=== PATIENT | male | born 1960 | race Caucasian/White ===

== ENCOUNTER 2025-01-12 17:51 | Inpatient (IN) | payer MEDICARE ==
[~2025-01-12] VITALS: Ht 182.9 cm; Wt 79.2 kg
[2025-01-12 18:27] LABS: BASOPHILS ABSOLUTE AUTO 0.02 K/mm3 (0.00-0.23); BASOPHILS PERCENT AUTO 0 % (0-2); EOSINOPHILS ABSOLUTE AUTO 0.04 K/mm3 (0.00-0.68); EOSINOPHILS PERCENT AUTO 0 % (0-6); Hematocrit 28.1 % (37.0-53.0); Hemoglobin 8.7 g/dL (13.5-17.5); IMMATURE GRAN ABSOLUTE AUTO 0.05 K/mm3 (0.00-0.10); IMMATURE GRAN PERCENT AUTO 0 % (0-1); LYMPHOCYTES ABSOLUTE AUTO 0.76 K/mm3 (0.84-5.20); LYMPHOCYTES PERCENT AUTO 6 % (21-46); MONOCYTES ABSOLUTE AUTO 0.72 K/mm3 (0.16-1.47); MONOCYTES PERCENT AUTO 6 % (4-13); Mean Corpuscular HGB 29.3 pg (26.0-34.0); Mean Corpuscular Volume 95 fL (80-100); Mean Platelet Volume 9.4 fL (9.1-12.4); NEUTROPHILS ABSOLUTE AUTO 10.87 K/mm3 (1.96-9.15); NEUTROPHILS PERCENT AUTO 87 % (41-73); Platelet Count 130 K/mm3 (150-400); RDW Coefficient Variation 14.6 % (11.7-14.2); RDW Standard Deviation 48.9 fL (35.1-46.3); Red Blood Cell Count 2.97 M/mm3 (4.30-5.90); White Blood Cell Count 12.46 K/mm3 (4.00-11.30)
[2025-01-12 19:11] LABS: Albumin, Blood 2.9 g/dL (3.4-5.0); Albumin/Globulin Ratio 0.7 (0.8-1.8); Bilirubin, Total 0.6 mg/dL (0.1-1.0); Bun/Creatinine Ratio 8.9 (12.0-20.0); Calcium, Blood 9.7 mg/dL (8.5-10.1); Creatinine, Blood 6.52 mg/dL (0.60-1.20); Globulin, Blood 4.2 g/dL (2.2-4.0); Potassium, Blood 4.7 mmol/L (3.5-5.5); Total Protein, Blood 7.1 g/dL (6.4-8.2)
[2025-01-12] MEDS ORDERED: Acetaminophen 500 MG Tab PO ONE (19:35)
[2025-01-12 19:41] LABS: Influenza A, PCR NEGATIVE (NEGATIVE); Influenza B, PCR NEGATIVE (NEGATIVE); Resp Syncytial Virus, PCR NEGATIVE (NEGATIVE); SARS-Cov-2 (COVID-19) PCR, MMC NEGATIVE (NEGATIVE)
[2025-01-12] MEDS ORDERED: CefTRIAXone Sodium 1,000 MG in NS 100 ML IV ONE (19:50)
[2025-01-12 20:15] LABS: Base Excess Venous 14.9 mmol/L; Bicarbonate Venous 37.1 mmol/L (24.0-30.0); PCO2 Venous 52.2 mmHg (38-42); pH Blood Venous 7.48 (7.34-7.37)
[2025-01-12 23:15] LABS: Body Fluid WBC Count 152 /mm3 (0-999); RBC Count, Body Fluid 156 /mm3 (0-0)
[2025-01-13] VITALS (19 sets, daily range): BP systolic 131–183; BP diastolic 58–93
[2025-01-13 00:21] LABS: Appearance, Body Fluid Clear (Clear); Color, Body Fluid Yellow (None-Yellow); Total Cell Count, Body Fluid 100
[2025-01-13] MEDS ORDERED: OMEP20ER PO ×2 (01:38)
[2025-01-13] MEDS ORDERED: DOC250 PO ×2 (01:39)
[2025-01-13] MEDS ORDERED: MIRALAX17 GM PO ×2 (01:41)
[2025-01-13] MEDS ORDERED: SEVEC800 ×2 (01:43)
[2025-01-13] MEDS ORDERED: SEVEC800 PO ×2 (01:45)
[2025-01-13] MEDS ORDERED: Calcium Acetat667 MG PO ×2 (01:49)
[2025-01-13] MEDS ORDERED: ROPI1 PO ×2 (01:51)
[2025-01-13] MEDS ORDERED: RENAL VITAMIN0.8 MG PO ×2 (01:53)
[2025-01-13] MEDS ORDERED: Nitrostat0.3 MG SL ×2 (01:56)
[2025-01-13] MEDS ORDERED: GABA100 PO ×2 (01:58)
[2025-01-13] MEDS ORDERED: ONDA4ODT PO ×2 (02:00)
[2025-01-13] MEDS ORDERED: DIAZ10 PO ×2 (02:02)
[2025-01-13] MEDS ORDERED: HYDHCL25 PO ×2 (02:05)
[2025-01-13] MEDS ORDERED: LOKELMA10 GM PO ×2 (02:05)
[2025-01-13] MEDS ORDERED: IPRAT-ALBUT 0.5-3 ML INH ×2 (02:07)
[2025-01-13] MEDS ORDERED: CINA30 PO ×2 (02:08)
[2025-01-13] MEDS ORDERED: ENTRESTO 24 MG1 EACH PO ×2 (02:09)
[2025-01-13] MEDS ORDERED: HYDMOR2 PO ×2 (02:10)
[2025-01-13] MEDS ORDERED: BENZ100A PO ×2 (02:11)
[2025-01-13] MEDS ORDERED: METO25ER PO ×2 (02:11)
--- NOTE | 2025-01-13 03:45 | NUR ---
PATIENT REFUSED LABS THIS AM. STATES HE WANTS A POWERGLIDE. UPDATED CHARGE NURSE. PATIENT CURRENTLY HAS A WORKING IV IN HIS RIGHT WRIST/ARM. DIALYSIS SHUNT IN THE LEFT ARM. WILL UPDATE DAY SHIFT OF PATIENT REQUEST. NO LABS DRAWN AT THIS TIME.
[2025-01-13] MEDS ORDERED: HYDROmorphone HCl 2 MG Tab PO ONE (05:05)
[2025-01-13] MEDS ORDERED: Benzonatate 100 MG Cap PO ONE (05:05)
--- NOTE | 2025-01-13 05:21 | NUR ---
MR FRANCOIS A NEW ADMISSION TODAY FROM ED. PATIENT CAME IN AFTER NOT BEING ABLE TO COMPLETE HIS THREE HOUR ROUND OF DIALYSIS. COMPLETED ONE HOUR AND FELT WEAK. PATIENT IS ALERT, AWAKE, ORIENTATED. FORGETFUL WHEN HE FIRST ARRIVED BUT NOW IS MORE AWARE. LEFT ARM FISTULA FOR DIALYSIS. PATIENT WEARS O2 PER NC BASELINE AT HOME. TELE SR. ABLE TO MAKE NEEDS KNOWN. ASKING FOR PAIN MEDICATION AND TESSALON PEARLES THIS MORNING. ONE TIME DOSE ORDERED FOR BOTH. PLAN OF CARE INITIATED. PLAN TO RETURN TO HOME WHEN DISCHARGED. PATIENT LIVES AT HOME WITH HIS . CONTINUE CARE.
--- NOTE | 2025-01-13 06:17 | NUR ---
Call to Dr. Dietz regarding patient being admitted last night. Also let know patient refused his lab work. Patient to be dialyzed today per Dr. Dietz. To update dialysis nurse and to draw labs during dialysis. Will update day RN
[2025-01-13] MEDS ORDERED: Vancomycin HCL 1,500 MG in NS 250 ML IV ONE (07:35)
[2025-01-13] MEDS ORDERED: Acetaminophen 325 MG TABLET PO PRN (07:45)
[2025-01-13] MEDS ORDERED: HYDROmorphone HCl 2 MG Tab PO PRN (08:25)
[2025-01-13] MEDS ORDERED: Saline Nasal Spray 45 ML PRN (08:25)
[2025-01-13] MEDS ORDERED: Diazepam 5 MG Tab PO PRN (09:20)
[2025-01-13 09:27] LABS: BASOPHILS ABSOLUTE AUTO 0.02 K/mm3 (0.00-0.23); BASOPHILS PERCENT AUTO 0 % (0-2); EOSINOPHILS ABSOLUTE AUTO 0.04 K/mm3 (0.00-0.68); EOSINOPHILS PERCENT AUTO 0 % (0-6); Hematocrit 22.9 % (37.0-53.0); Hemoglobin 7.2 g/dL (13.5-17.5); IMMATURE GRAN ABSOLUTE AUTO 0.05 K/mm3 (0.00-0.10); IMMATURE GRAN PERCENT AUTO 1 % (0-1); LYMPHOCYTES ABSOLUTE AUTO 0.72 K/mm3 (0.84-5.20); LYMPHOCYTES PERCENT AUTO 7 % (21-46); MONOCYTES ABSOLUTE AUTO 0.84 K/mm3 (0.16-1.47); MONOCYTES PERCENT AUTO 8 % (4-13); Mean Corpuscular HGB 29.8 pg (26.0-34.0); Mean Corpuscular HGB Conc 31.4 g/dL (31.5-36.5); Mean Corpuscular Volume 95 fL (80-100); Mean Platelet Volume 9.6 fL (9.1-12.4); NEUTROPHILS ABSOLUTE AUTO 9.43 K/mm3 (1.96-9.15); NEUTROPHILS PERCENT AUTO 85 % (41-73); Platelet Count 106 K/mm3 (150-400); RDW Coefficient Variation 14.7 % (11.7-14.2); RDW Standard Deviation 49.6 fL (35.1-46.3); Red Blood Cell Count 2.42 M/mm3 (4.30-5.90)
[2025-01-13 09:53] LABS: Albumin, Blood 2.4 g/dL (3.4-5.0); Anion Gap 9 mmol/L (3-11); Blood Urea Nitrogen 62 mg/dL (8-24); Bun/Creatinine Ratio 7.9 (12.0-20.0); CO2, Blood 36 mmol/L (21-32); Calcium, Blood 9.7 mg/dL (8.5-10.1); Chloride, Blood 94 mmol/L (98-108); Creatinine, Blood 7.87 mg/dL (0.60-1.20); Glomerular Filtration Rate 7 (60-); Glucose, Blood 87 mg/dL (70-99); Phosphorus, Blood 3.6 mg/dL (2.5-4.9); Potassium, Blood 5.3 mmol/L (3.5-5.5); Sodium, Blood 134 mmol/L (136-145)
[2025-01-13] MEDS ORDERED: Benzonatate 100 MG Cap PO PRN (09:55)
--- NOTE | 2025-01-13 12:24 | NUR ---
Tx complete without issue. 2 liters net removed per MD. Labs drawn at start of TX.
[2025-01-13] MEDS ORDERED: Sevelamer Carbonate 800 MG Tab PO SCH ×2 (12:30→17:55)
[2025-01-13] MEDS ORDERED: Calcium Acetate 667 MG Gel Cap PO PRN (12:30)
[2025-01-13] MEDS ORDERED: Sodium Zirconium Cyclosilicate 10 GM Packet PO SCH (12:30)
[2025-01-13] MEDS ORDERED: Sevelamer Carbonate 800 MG Tab PO PRN (12:30)
[2025-01-13] MEDS ORDERED: Calcium Acetate 667 MG Gel Cap PO SCH ×2 (12:30→17:55)
[2025-01-13 15:29] LABS: Adenovirus F 40/41 Not Detected (NOT DETECT); Campylobacter Sp Not Detected (NOT DETECT); Cryptosporidium Not Detected (NOT DETECT); Cyclospora Cayetanensis Not Detected (NOT DETECT); E. Coli O157 Not Detected (NOT DETECT); Entamoeba Histolytica Not Detected (NOT DETECT); Enteroaggregative E. coli-EAEC Not Detected (NOT DETECT); Enteropathogenic E. coli-EPEC Not Detected (NOT DETECT); Enterotoxigenic E. coli-ETEC Not Detected (NOT DETECT); Giardia Lamblia Not Detected (NOT DETECT); Plesiomonas Shigelloides Not Detected (NOT DETECT); Salmonella Sp Not Detected (NOT DETECT); Shiga Toxin-prod E. coli-STEC Not Detected (NOT DETECT); Shigella/Enteroin E. coli-EIEC Not Detected (NOT DETECT); Vibrio Cholerae Not Detected (NOT DETECT); Vibrio Sp Not Detected (NOT DETECT); Yersinia Enterocolitica Not Detected (NOT DETECT)
[2025-01-13 15:30] LABS: Astrovirus Not Detected (NOT DETECT); Norovirus GI/GII Not Detected (NOT DETECT); Rotavirus A Not Detected (NOT DETECT); Sapovirus Not Detected (NOT DETECT)
--- NOTE | 2025-01-13 16:00 | NUR ---
PT ORAL TEMP 103.7. DR. LEDBETTER NOTIFIED AND GAVE VERBAL ORDER FOR AMYLASE, LIPASE, LIVER PANEL STAT, AND CT ABDOMEN AND PELVIS W/O CONTRAST. PT GIVEN PRN TYLENOL PER EMAR, ICE PACK FOR NECK, LINEN REMOVED, AND FAN. LABS BEING DRAWN AT THIS TIME.
[2025-01-13 16:54] LABS: Albumin, Blood 2.5 g/dL (3.4-5.0); Albumin/Globulin Ratio 0.6 (0.8-1.8); Bilirubin, Direct 0.2 mg/dL (0.0-0.3); Bilirubin, Indirect 0.5 mg/dL (0.1-0.7); Bilirubin, Total 0.7 mg/dL (0.1-1.0); Globulin, Blood 4.2 g/dL (2.2-4.0); Total Protein, Blood 6.7 g/dL (6.4-8.2)
--- NOTE | 2025-01-13 17:07 | NUR ---
DR. LEDBETTER UPDATED ON LIVER PANEL. NO NEW ORDERS. WILL PLAN FOR CT OF ABDOMEN AND PELVIS W/O CONTRAST TOMORROW. RESIDENT TEAM UPDATED ON ELEVATED TEMPS AND STOOL SAMPLE RESULTS. PT PLACED IN CDIFF ISO.
[2025-01-13] MEDS ORDERED: CefTRIAXone Sodium 1,000 MG in NS 100 ML IV SCH (18:00)
[2025-01-13] MEDS ORDERED: Cinacalcet HCL 30 MG Tab PO SCH (18:00)
[2025-01-13] MEDS ORDERED: CefTRIAXone Sodium 2,000 MG in NS 100 ML IV SCH (18:00)
--- NOTE | 2025-01-13 18:45 | NUR ---
PT IS A/OX4 WITH OCCASIONAL LETHARGY. PT WENT TO DIALYSIS TODAY. PT C/O OF BODY ACHES AND MEDICATED PER EMAR. PT REPORTED PAIN DECREASED TO A 4. PT DEVELOPED FEVER OF 103.[address] LEDBETTER NOTIFIED. LIVER PANEL DRAWN AND REPORTED BACK TO DR. LEDBETTER. PT GIVEN TYLENOL FOR PAIN AND FEVER DOWN TO 99. PT IN ISOLATION TO RULE OUT CDIFF. ADDITIONAL STOOL SAMPLE NEEDED. CT FOR CHEST AND ABDOMEN AND PELVIS COMPLETED. BED LOW AND LOCKED.
[2025-01-14] VITALS (19 sets, daily range): BP systolic 106–162; BP diastolic 58–95
--- NOTE | 2025-01-14 04:27 | NUR ---
SHIFT SUMMARY. SHIFT HAS BEEN UNREMARKABLE, NO ACUTE CHANGES. PT AOX4, PLEASANT, COOPERATIVE WITH CARE, ABLE TO MAKE NEEDS KNOWN. HAS BEEN ABLE TO REST COMFORTABLY THROUGHOUT MOST OF SHIFT. VITALS HAVE BEEN STABLE OUTSIDE OF PT BEING FEBRILE AT TIMES. HAS BEEN ABLE TO BE ADEQUATELY MANAGED VIA TYLENOL AND TEMPERATURE REGULATION WITHIN THE ROOM. PT PAIN HAS BEEN ADEQUATELY MANAGED VIA EMAR THROUGHOUT SHIFT. HAS MAINTAINED ADEQUATE SATURATION ON 2-3 L O2 VIA NC. HAS BEEN RUNNING SINUS THROUGHOUT SHIFT. NO URINE OUTPUT, DIALYSIS PATIENT. BED LOCKED IN LOWEST POSITION. CALL LIGHT LEFT WITHIN REACH. CONTINUING TO MONITOR.
[2025-01-14 04:51] LABS: BASOPHILS ABSOLUTE AUTO 0.02 K/mm3 (0.00-0.23); BASOPHILS PERCENT AUTO 0 % (0-2); EOSINOPHILS ABSOLUTE AUTO 0.02 K/mm3 (0.00-0.68); EOSINOPHILS PERCENT AUTO 0 % (0-6); Hematocrit 26.4 % (37.0-53.0); Hemoglobin 8.1 g/dL (13.5-17.5); IMMATURE GRAN ABSOLUTE AUTO 0.05 K/mm3 (0.00-0.10); IMMATURE GRAN PERCENT AUTO 0 % (0-1); LYMPHOCYTES ABSOLUTE AUTO 0.82 K/mm3 (0.84-5.20); LYMPHOCYTES PERCENT AUTO 7 % (21-46); MONOCYTES ABSOLUTE AUTO 1.21 K/mm3 (0.16-1.47); MONOCYTES PERCENT AUTO 10 % (4-13); Mean Corpuscular HGB 29.7 pg (26.0-34.0); Mean Corpuscular HGB Conc 30.7 g/dL (31.5-36.5); Mean Corpuscular Volume 97 fL (80-100); Mean Platelet Volume 9.7 fL (9.1-12.4); NEUTROPHILS ABSOLUTE AUTO 10.04 K/mm3 (1.96-9.15); NEUTROPHILS PERCENT AUTO 83 % (41-73); Platelet Count 103 K/mm3 (150-400); RDW Coefficient Variation 14.8 % (11.7-14.2); RDW Standard Deviation 50.8 fL (35.1-46.3); Red Blood Cell Count 2.73 M/mm3 (4.30-5.90); White Blood Cell Count 12.16 K/mm3 (4.00-11.30)
[2025-01-14 05:29] LABS: Albumin, Blood 2.5 g/dL (3.4-5.0); Anion Gap 9 mmol/L (3-11); Blood Urea Nitrogen 44 mg/dL (8-24); Bun/Creatinine Ratio 7.5 (12.0-20.0); CO2, Blood 36 mmol/L (21-32); Calcium, Blood 9.4 mg/dL (8.5-10.1); Chloride, Blood 95 mmol/L (98-108); Creatinine, Blood 5.89 mg/dL (0.60-1.20); Glomerular Filtration Rate 10 (60-); Glucose, Blood 87 mg/dL (70-99); Magnesium, Blood 2.7 mg/dL (1.6-2.4); Phosphorus, Blood 3.6 mg/dL (2.5-4.9); Potassium, Blood 4.6 mmol/L (3.5-5.5); Sodium, Blood 135 mmol/L (136-145); Vancomycin, Random 23.3 ug/mL
--- NOTE | 2025-01-14 09:46 | NUR ---
0840 PT DOWN TO DIALYSIS.
--- NOTE | 2025-01-14 11:14 | NUR ---
PT BACK FROM DIALYSIS, 2L OFF PER REPORT
[2025-01-14] MEDS ORDERED: Darbepoetin Alfa In Albumn Sol 40 MCG/0.4 ML SC SCH (12:00)
[2025-01-14 15:50] LABS: HEPATITIS B SURFACE ANTIBODY 106.89 IU/L
[2025-01-14 16:00] LABS: HEPATITIS B SURFACE ANTIGEN Negative (Negative)
[2025-01-14 16:30] LABS: HBV CORE ANTIBODIES,TOTAL Negative (Negative)
--- NOTE | 2025-01-14 17:00 | NUR ---
REPORT GIVEN TO MED VASILE RN AT 1700. PT TRANSFERED AT 1710 VIA HOSPITAL BED AND ON 3L NC. PT PERSONAL BELONGINGS WITH PT AT TIME OF TRANSFER.
--- NOTE | 2025-01-14 18:45 | NUR ---
PT TRANSFERED FROM PCU. ALERT AND ORIENTED X4, AT BEDSIDE PT CURRENTLY EATING. INDEPENDENT WITH CANE. PT AWARE STOOL SAMPLE IS NEEDED. CALLS APPROPRIATELY
[2025-01-15] VITALS (10 sets, daily range): BP systolic 116–155; BP diastolic 64–89
--- NOTE | 2025-01-15 04:30 | NUR ---
SHIFT SUMMARY ADMITTED FOR TOXIC METABOLIC ENCEPHALOPATHY. DNR CODE. ISOLATION FOR R/O C.DIFF. HE DENIES DIARRHEA SINCE ADMIT. HAS HAD LOW GRADE FEVERS SINCE ADMIT, NO INFECTIOUS SOURCE FOUND YET. PO PAIN RX GIVEN THIS SHIFT. VALIUM GIVEN THIS SHIFT. HE IS A&O X4, RENAL DIET, ON 3 LPM O2 @ BASELINE. STANDBY ASSIST W/CANE. HD PATIENT [address]EEK [address]ALLY. [address] LEDBETTER IS RENAL CONSULT. HX: POLYCYSTIC KIDNEY DISEASE, BILATERAL NEPHRECTOMY. CHF, FREQUENT PARACENTESIS FOR ASCITES. HE WILL DC HOME W/HH WHEN STABLE.
[2025-01-15 06:12] LABS: Hematocrit 21.9 % (37.0-53.0); Hemoglobin 6.9 g/dL (13.5-17.5)
[2025-01-15 06:36] LABS: Albumin, Blood 2.3 g/dL (3.4-5.0); Anion Gap 6 mmol/L (3-11); Blood Urea Nitrogen 48 mg/dL (8-24); Bun/Creatinine Ratio 8.2 (12.0-20.0); CO2, Blood 37 mmol/L (21-32); Calcium, Blood 9.5 mg/dL (8.5-10.1); Chloride, Blood 93 mmol/L (98-108); Creatinine, Blood 5.83 mg/dL (0.60-1.20); Glomerular Filtration Rate 10 (60-); Glucose, Blood 95 mg/dL (70-99); Magnesium, Blood 2.7 mg/dL (1.6-2.4); Phosphorus, Blood 3.9 mg/dL (2.5-4.9); Potassium, Blood 4.4 mmol/L (3.5-5.5); Sodium, Blood 132 mmol/L (136-145)
[2025-01-15] MEDS ORDERED: NS 500 ML IV SCH (10:45)
[2025-01-15] MEDS ORDERED: Ondansetron 4 MG SoluTab MM PRN (15:45)
[2025-01-15 17:46] LABS: HEPATITIS B SURFACE ANTIBODY 113.6 IU/L
[2025-01-15 17:49] LABS: HEPATITIS B SURFACE ANTIGEN Negative (Negative)
[2025-01-15 18:33] LABS: HBV CORE ANTIBODIES,TOTAL Negative (Negative)
--- NOTE | 2025-01-15 19:32 | NUR ---
SHIFT SUMMARY PATIENT A/OX4, ABLE TO MAKE NEEDS KNOWN. WITHDRAWN ADN COOPERATIVE WITH CARE. HGB 6.9 THIS AM, 1 UNITE OF PRBCs ADMINISTERED THIS SHIFT AND PLAN TO ADMINISTER 1 UNIT MORE TOMORROW DURING DIALYSIS. FISTULA TO LEFT ARM, WNL. PATIENT COMPLAINING OF BACK PAIN, MEDICATED PER DEC. ALSO COMPLAINING OF NAUSEA AND ANXIETY THIS EVENING, MEDICATED PER DEC. CONTINUES WITH 3 LPM OXYGEN VIA NASAL CANNULA. ABDOMEN DISTENDED AND TENDER. AT BEDSIDE THIS EVENING. NO OTHER CONCERNS AT THIS TIME
[2025-01-16] VITALS (17 sets, daily range): BP systolic 120–158; BP diastolic 73–90
[2025-01-16 09:04] LABS: BASOPHILS ABSOLUTE AUTO 0.02 K/mm3 (0.00-0.23); BASOPHILS PERCENT AUTO 0 % (0-2); EOSINOPHILS ABSOLUTE AUTO 0.08 K/mm3 (0.00-0.68); EOSINOPHILS PERCENT AUTO 2 % (0-6); Hematocrit 22.6 % (37.0-53.0); Hemoglobin 7.3 g/dL (13.5-17.5); IMMATURE GRAN ABSOLUTE AUTO 0.01 K/mm3 (0.00-0.10); IMMATURE GRAN PERCENT AUTO 0 % (0-1); LYMPHOCYTES ABSOLUTE AUTO 0.71 K/mm3 (0.84-5.20); LYMPHOCYTES PERCENT AUTO 15 % (21-46); MONOCYTES ABSOLUTE AUTO 0.39 K/mm3 (0.16-1.47); MONOCYTES PERCENT AUTO 8 % (4-13); Mean Corpuscular HGB Conc 32.3 g/dL (31.5-36.5); Mean Corpuscular Volume 93 fL (80-100); Mean Platelet Volume 9.5 fL (9.1-12.4); NEUTROPHILS ABSOLUTE AUTO 3.62 K/mm3 (1.96-9.15); NEUTROPHILS PERCENT AUTO 75 % (41-73); Platelet Count 105 K/mm3 (150-400); RDW Coefficient Variation 14.6 % (11.7-14.2); RDW Standard Deviation 48.9 fL (35.1-46.3); Red Blood Cell Count 2.43 M/mm3 (4.30-5.90); White Blood Cell Count 4.83 K/mm3 (4.00-11.30)
[2025-01-16 09:18] LABS: Albumin, Blood 2.1 g/dL (3.4-5.0); Anion Gap 12 mmol/L (3-11); Blood Urea Nitrogen 60 mg/dL (8-24); Bun/Creatinine Ratio 8.8 (12.0-20.0); CO2, Blood 35 mmol/L (21-32); Chloride, Blood 92 mmol/L (98-108); Glomerular Filtration Rate 8 (60-); Glucose, Blood 94 mg/dL (70-99); Magnesium, Blood 2.8 mg/dL (1.6-2.4); Phosphorus, Blood 3.8 mg/dL (2.5-4.9); Potassium, Blood 4.5 mmol/L (3.5-5.5); Sodium, Blood 134 mmol/L (136-145)
--- NOTE | 2025-01-16 17:09 | NUR ---
SHIFT SUMMARY: PATIENT A/OX4, PLEASANT AND COOPERATIVE c CARE. PATIENT WAS DIALYZED THIS AM AND RECEIVED 1 UNIT PRBC DURING DIALYSIS PER ORDER. PATIENT REPORTS BEING "EXHAUSTED AND WORN OUT" AFTER DIALYSIS. PATIENT MEDICATED X1 FOR NAUSEA AND X1 FOR PAIN TO R SHOULDER c GOOD EFFECT. PATIENT SLEPT ON/OFF T/O THE DAY. DR. NIELSEN SPOKE TO SPOUSE AND PATIENT IN ROOM THIS PM. PER DR. NIELSEN PATIENT CAN STAY OVERNIGHT AND DISCHARGE HOME TOMORROW. VITAL SIGNS REVIEWED. PATIENT AND SPOUSE HAS HAD NO COMPLAINTS OR NO NEW CONCERNED THIS SHIFT. CALL LIGHT IN REACH.
[2025-01-17] VITALS (13 sets, daily range): BP systolic 129–156; BP diastolic 76–95
[2025-01-17 05:34] LABS: Hematocrit 26.9 % (37.0-53.0); Hemoglobin 8.7 g/dL (13.5-17.5)
[2025-01-17 05:55] LABS: Magnesium, Blood 2.8 mg/dL (1.6-2.4)
[2025-01-17 05:56] LABS: Albumin, Blood 2.2 g/dL (3.4-5.0); Anion Gap 9 mmol/L (3-11); Blood Urea Nitrogen 52 mg/dL (8-24); Bun/Creatinine Ratio 8.3 (12.0-20.0); CO2, Blood 35 mmol/L (21-32); Calcium, Blood 9.2 mg/dL (8.5-10.1); Chloride, Blood 94 mmol/L (98-108); Creatinine, Blood 6.26 mg/dL (0.60-1.20); Glomerular Filtration Rate 9 (60-); Glucose, Blood 97 mg/dL (70-99); Phosphorus, Blood 4.4 mg/dL (2.5-4.9); Potassium, Blood 4.5 mmol/L (3.5-5.5); Sodium, Blood 133 mmol/L (136-145)
[2025-01-17 14:32] LABS: Albumin, Blood 2.2 g/dL (3.4-5.0); Albumin/Globulin Ratio 0.6 (0.8-1.8); Bilirubin, Direct 0.2 mg/dL (0.0-0.3); Bilirubin, Indirect 0.2 mg/dL (0.1-0.7); Bilirubin, Total 0.4 mg/dL (0.1-1.0); Globulin, Blood 3.6 g/dL (2.2-4.0); Total Protein, Blood 5.8 g/dL (6.4-8.2)
--- NOTE | 2025-01-17 16:27 | NUR ---
SHIFT/DISCHARGE: PATIENT HAS HAD NO CHANGES THIS SHIFT. PATIENT MEDICATED X1 FOR PAIN. PATIENT WAS DIALYZED TODAY c 1500 MLS NET FLUID REMOVED. PATIENT DECLINED SCHEDULED MEDS THIS SHIFT. PATIENT ON 3L O2 AT BASELINE. DENIES SOB, CP/PRESSURE, N/V AND DIZZINESS. VITAL SIGNS REVIEWED. PIV DC'D. PATIENT DISCHARGE HOME. DISCHARGE INSTRUCTIONS PACKET GIVEN TO PATIENT. PATIENT EDUCATED c ADMITTING DX'S OF TOXIC METABOLIC ENCEPHALOPATHY, S/S, TX AND TO F/U c PCP. PATIENT VERBALIZED UNDERSTANDING AND NO FURTHER QUESTIONS. PATIENT HAS HAD NO NEW RX ORDERED. ALL PERSONAL BELONGINGS WERE SENT HOME c THE PATIENT. PATIENT LEFT THE ROOM AT 1630, TRANSPORTED VIA W/C BY STRING TOP SEALER TO PATIENT ENTRANCE.
== END 2025-01-17 16:26 | disposition home health service (06) | DRG 91 ==
LOC: ER 17:51 → PCU 23:24 → MEDS 01-14 17:13
PROVIDERS: Internal Medicine Nephrology; Student in an Organized Health Care Education/Training Program; ADMIT Internal Medicine
PROC: 30233N1 Transfusion of Nonautologous Red Blood Cells into Peripheral Vein, Percutaneous Approach (ICD-10-PCS; principal; 2025-01-15)
PROC: 5A1D70Z Performance of Urinary Filtration, Intermittent, Less than 6 Hours Per Day (ICD-10-PCS; 2025-01-15)
DX: G92.8 Other toxic encephalopathy (principal); K65.2 Spontaneous bacterial peritonitis; N18.6 End stage renal disease; I13.2 Hypertensive heart and chronic kidney disease with heart failure and with stage 5 chronic kidney disease, or end stage renal disease; I50.22 Chronic systolic (congestive) heart failure; E87.1 Hypo-osmolality and hyponatremia; Z66 Do not resuscitate; Q61.3 Polycystic kidney, unspecified; R65.10 Systemic inflammatory response syndrome (SIRS) of non-infectious origin without acute organ dysfunction; A04.72 Enterocolitis due to Clostridium difficile, not specified as recurrent; M19.90 Unspecified osteoarthritis, unspecified site; E21.3 Hyperparathyroidism, unspecified; M81.0 Age-related osteoporosis without current pathological fracture; E87.5 Hyperkalemia; D69.6 Thrombocytopenia, unspecified; Z79.891 Long term (current) use of opiate analgesic; Z88.0 Allergy status to penicillin; Z88.8 Allergy status to other drugs, medicaments and biological substances; Z79.899 Other long term (current) drug therapy; Z99.2 Dependence on renal dialysis; Z87.19 Personal history of other diseases of the digestive system; Z98.890 Other specified postprocedural states; Z90.5 Acquired absence of kidney; Z87.891 Personal history of nicotine dependence; I48.0 Paroxysmal atrial fibrillation; D63.1 Anemia in chronic kidney disease; R91.1 Solitary pulmonary nodule
CPT/HCPCS: 0241U; 36415; 36430; 49082; 71046; 71250; 74176; 80053; 80069; 80076; 80202; 82140; 82150; 82803; 83605; 83690; 83735; 83880; 84484; 85014; 85018; 85025; 86704; 86850; 86900; 86901; 86923; 87040; 87070; 87205; 87324; 87340; 87507; 89051; 93005; 93010; 94760; 96365-59; 99285-25; A9270; J0696; J0881; J3370; J7050; P9016

== ENCOUNTER → 2025-01-19 | Outpatient (CLI) | payer MEDICARE ==
[~2025-01-19] MED LIST: BENZ100A PO; CINA30 PO; Calcium Acetat667 MG PO; DIAZ10 PO; DOC250 PO; ENTRESTO 24 MG1 EACH PO; GABA100 PO; HYDHCL25 PO; HYDMOR2 PO; IPRAT-ALBUT 0.5-3 ML INH; LOKELMA10 GM PO; METO25ER PO; MIRALAX17 GM PO; Nitrostat0.3 MG SL; OMEP20ER PO; ONDA4ODT PO; RENAL VITAMIN0.8 MG PO; ROPI1 PO; SEVEC800; SEVEC800 PO
== END | disposition home or self-care (01) ==
LOC: LAB 16:58 → LAB SHORT 16:58
DX: N18.6 End stage renal disease (principal); D63.1 Anemia in chronic kidney disease
CPT/HCPCS: 85018